=== PATIENT | female | born 1965 | race Caucasian/White ===

== ENCOUNTER → 2017-10-01 | Outpatient (CLI) | payer BC, OTHER ==
--- NOTE | 2017-10-01 11:28 | DIAGNOSTIC IMAGING REPORT ---
L WRIST MIN 3 VIEWS ROUTINE HISTORY: 52 years-old Female PAIN IN LEFT HAND AND WRIST acute left wrist pain COMPARISON: None available TECHNIQUE: 3 views of the left wrist FINDINGS: Mild radiocarpal and first carpometacarpal osteoarthritis. No acute fracture or dislocation. No opaque foreign body. IMPRESSION: Mild degenerative changes without acute fracture. The above report was generated using voice recognition software. It may contain grammatical, syntax or spelling errors. Electronically signed by: Connor Foote M.D. 10/01/2017 11:27 AM Dictated Date/Time: 10/01/2017 11:25 AM
== END | disposition home or self-care (01) ==
LOC: C.RDSM 11:15
PROVIDERS: ATTEND Physician Assistant
DX: M79.642 Pain in left hand (principal); M25.532 Pain in left wrist

== ENCOUNTER → 2017-12-30 | Outpatient (CLI) | payer OTHER | END | disposition home or self-care (01) | LOC: C.LAB1850 13:34 | PROVIDERS: ATTEND Obstetrics & Gynecology | DX: N83.299 Other ovarian cyst, unspecified side (principal) ==